=== PATIENT | male | born 1980 | race Caucasian/White ===

== ENCOUNTER 2022-02-19 08:06 | Day surgery (SDC) | payer MEDICARE, MEDICAID ==
[2022-02-19] VITALS (14 sets, daily range): BP systolic 113–153; BP diastolic 63–87
[~2022-02-19] VITALS: Ht 172.7 cm; Wt 101.6 kg
[2022-02-19] MEDS ORDERED: normal saline 1000ml 1,000 ML IV PRN (08:35)
[2022-02-19] MEDS ORDERED: ONDA4TAB12 PO (08:48)
[2022-02-19] MEDS ORDERED: LEVE750T35 PO (08:48)
[2022-02-19] MEDS ORDERED: LORL100T PO (08:48)
[2022-02-19] MEDS ORDERED: HYDR-3965 PO (08:48)
[2022-02-19] MEDS ORDERED: APIX5TAB3 PO (08:48)
[2022-02-19] MEDS ORDERED: ACET-890 PO (08:48)
[2022-02-19 09:17] LABS: BASOPHILS % (AUTO) 0.6 % (0-1); EOSINOPHILS # (AUTO) 0.2 X10'3 (0-0.9); EOSINOPHILS % (AUTO) 3.3 % (0-6); HEMATOCRIT 40.1 % (42.0-52.0); HEMOGLOBIN 13.9 g/dl (14.0-17.9); LYMPHOCYTES # (AUTO) 1.8 X10'3 (1.1-4.8); LYMPHOCYTES % (AUTO) 24.2 % (21-51); MEAN CORPUSCULAR HGB CONC 34.7 g/dL (33.0-36.5); MEAN CORPUSCULAR VOLUME 80.7 FL (78-98); MEAN PLATELET VOLUME 8.6 FL (7.4-10.4); MONOCYTES # (AUTO) 0.6 X10'3 (0-0.9); NEUTROPHILS # (AUTO) 4.7 X10'3 (1.8-7.7); NEUTROPHILS % (AUTO) 63.9 % (42-75); PLATELET COUNT 184 X10'3 (140-440); RED BLOOD COUNT 4.97 X10'6 (4.70-6.10); RED CELL DISTRIBUTION WIDTH 14.2 % (11.5-14.5); WHITE BLOOD COUNT 7.4 X10'3 (4.5-11.0)
[2022-02-19] MEDS ORDERED: sodium chloride 0.45% 1,000 ML IV SCH (09:40)
[2022-02-19] MEDS ORDERED: LIDOcaine 1%/PF 5ML 10 MG/ML VIAL ONE (10:00)
[2022-02-19] MEDS ORDERED: fentaNYL/PF 50MCG/1 ML 2ML syringe ONE (10:15)
[2022-02-19] MEDS ORDERED: midazolam 1 mg/ML 2ml injection ONE (10:15)
== END 2022-02-19 13:55 | disposition home or self-care (01) ==
LOC: SSTAY O 08:06
PROVIDERS: ATTEND Radiology Vascular & Interventional Radiology
DX: C34.32 Malignant neoplasm of lower lobe, left bronchus or lung (principal); G51.0 Bell's palsy; Z79.899 Other long term (current) drug therapy; Z98.890 Other specified postprocedural states
CPT/HCPCS: 32408; 36415; 71045; 85025; 85610; 88341; 88342; 99152; 99153; J2250; J3010; J3490; J7030; 77012; 88305; A4615

== ENCOUNTER 2022-08-21 08:30 | Day surgery (SDC) | payer MEDICARE, MEDICAID ==
[~2022-08-21] VITALS: Ht 172.7 cm; Wt 105.9 kg
[~2022-08-21 08:30] MED LIST: ACET-890 PO; APIX5TAB3 PO; HYDR-3965 PO; LEVE750T35 PO; LORL100T PO; ONDA4TAB12 PO
[2022-08-21] MEDS ORDERED: DEXA4TAB79 PO (09:36)
[2022-08-21] MEDS ORDERED: normal saline 1000ml 1,000 ML IV PRN (09:50)
[2022-08-21 10:34] VITALS: BP 131/86
[2022-08-21 11:16] LABS: BASOPHILS % (AUTO) 0.1 % (0-1); EOSINOPHILS % (AUTO) 0 % (0-6); HEMATOCRIT 37.1 % (42.0-52.0); HEMOGLOBIN 12.6 g/dl (14.0-17.9); LYMPHOCYTES % (AUTO) 9.4 % (21-51); MEAN CORPUSCULAR VOLUME 88.2 FL (78-98); MEAN PLATELET VOLUME 6.8 FL (7.4-10.4); MONOCYTES # (AUTO) 0.5 X10'3 (0-0.9); NEUTROPHILS # (AUTO) 8.8 X10'3 (1.8-7.7); NEUTROPHILS % (AUTO) 85.5 % (42-75); PLATELET COUNT 218 X10'3 (140-440); RED CELL DISTRIBUTION WIDTH 20.1 % (11.5-14.5); WHITE BLOOD COUNT 10.3 X10'3 (4.5-11.0)
[2022-08-21] MEDS ORDERED: midazolam 1 mg/ML 2ml injection ONE (11:33)
[2022-08-21] MEDS ORDERED: heparin sodium, porcine/PF 100unit/ml 5ML syringe ONE (11:33)
[2022-08-21] MEDS ORDERED: fentaNYL/PF 50MCG/1 ML 2ML syringe ONE (11:34)
[2022-08-21 11:49] LABS: PLATELET ESTIMATE NORMAL
[2022-08-21 11:50] LABS: ANISOCYTOSIS 3+; POLYCHROMASIA FEW
[2022-08-21 12:51] VITALS: BP 141/109
[2022-08-21 13:06] VITALS: BP 115/57
[2022-08-21 13:22] VITALS: BP 163/114
[2022-08-21 13:28] VITALS: BP 158/105
== END 2022-08-21 13:45 | disposition home or self-care (01) ==
LOC: SSTAY O 08:30
PROVIDERS: ATTEND Radiology Vascular & Interventional Radiology
DX: C34.11 Malignant neoplasm of upper lobe, right bronchus or lung (principal); C79.51 Secondary malignant neoplasm of bone; C79.31 Secondary malignant neoplasm of brain; G51.0 Bell's palsy; Z79.899 Other long term (current) drug therapy; Z79.01 Long term (current) use of anticoagulants; Z98.890 Other specified postprocedural states
CPT/HCPCS: 36415; 36561; 76937; 77001; 85025; 85610; 99152; C1788; C1894; J1642; J2250; J3010; J7030; 85008; 99153